=== PATIENT | female | born 1970 | race Caucasian/White ===

== ENCOUNTER 2016-11-06 19:40 | Emergency (ER) | payer BC ==
--- NOTE | 2016-11-16 13:53 | ER ---
ADMIT: 11/06/2016 RM/LOC: ER [facility] MR#: [id number] [address] [facility] [address] [place], [place] [id number] ROBERT HANSEN [address] [place] [id number] Emergency Room Report SEX: F AGE: 46 : 1970 DATE: 11/06/2016 ADDENDUM: This patient comes into the ER because she thinks she has her contact lens stuck in her eye. Earlier today, she thought it was in there. She flushed her eye out several times. Now, she is having severe pain like when she has scratched her cornea in the past. On physical exam, I do not see any contact lens. I did try flushing her eye out, still did not see anything. I then stained it with fluorescein and she does have several small corneal abrasions, but I see no contact lens. I wrote a prescription for erythromycin ointment which we placed in her eye. She was given Percocet in the ER, and we will have her take one Ambien this evening to help her sleep. If she is not feeling better in the morning, she is to follow up with Dr. Jones. Please see my T-sheet. MAMI Ji / Randolph Guerrero MD / modl JOB #: [id number] CC: Randolph Guerrero MD, Attending Physician Errol Morrison MD, Family Physician
== END 2016-11-06 21:47 | disposition home or self-care (01) ==
LOC: ER 19:40
DX: S05.02XA Injury of conjunctiva and corneal abrasion without foreign body, left eye, initial encounter (principal); Z23 Encounter for immunization